=== PATIENT | female | born 1940 | race Caucasian/White ===

== ENCOUNTER → 2016-08-31 | Outpatient (CLI) | payer OTHER, BC ==
[~2016-08-31] MED LIST: CALC600T9 PO; COEN1CAP7 PO; CZR50 PO; FRRS300 PO; PRAV20TA PO; RANI300T2 PO
[2016-08-31 09:40] LABS: URINE APPEARANCE CLEAR (CLEAR); URINE BILIRUBIN NEG (NEG); URINE COLOR DK YELLOW; URINE NITRITE NEG (NEG); URINE SPECIFIC GRAVITY 1.021 (1.000-1.030); UROBILINOGEN NEG (NEG)
[2016-08-31 09:41] LABS: HEMATOCRIT 42.2 % (37-47); MEAN CELL VOLUME 87.6 fL (80-100); MEAN CORPUSCULAR HEMOGLOBIN 28.8 pg (25-34); MEAN CORPUSCULAR HGB CONC 32.9 g/dl (32-36); MEAN PLATELET VOLUME 11.6 fL (7.4-10.4); PLATELET COUNT 86 K/uL (130-400); RED BLOOD COUNT 4.82 M/uL (4.2-5.4); WHITE BLOOD COUNT 6.69 K/uL (4.8-10.8)
[2016-08-31 09:44] LABS: MANUAL MICROSCOPIC REQUIRED? NO; REVIEW REQ? NO
[2016-08-31 10:03] LABS: BASO % 0.4 %; BASO ABS # 0.03 K/uL (0-0.2); COMPLETE YES; EOS % 1.9 %; IG% 0.1 %; LYMPH ABS # 3.08 K/uL (1.2-3.4); MONO % 7.9 %; NEUT % 43.7 %
[2016-08-31 10:09] LABS: ESTIMATED AVERAGE GLUCOSE 111 mg/dl; HA1C FLAG Normal (Normal)
[2016-08-31 10:55] LABS: ALT/SGPT 43 U/L (12-78); AST/SGOT 21 U/L (15-37); BLOOD UREA NITROGEN 16 mg/dl (7-18); CALCIUM 9.2 mg/dl (8.5-10.1); CARBON DIOXIDE 26 mmol/L (21-32); CHLORIDE 108 mmol/L (98-107); CREATININE 0.81 mg/dl (0.60-1.20); GLUCOSE 92 mg/dl (70-99); POTASSIUM 4.2 mmol/L (3.5-5.1); SODIUM 142 mmol/L (136-145)
[2016-08-31 11:09] LABS: CHOLESTEROL 186 mg/dl (0-200); CHOLESTEROL/HDL RATIO 4.5; HDL CHOLESTEROL 41 mg/dl; LDL CHOLESTEROL CALCULATED 111 mg/dl; TRIGLYCERIDES 170 mg/dl (0-150); VERY LOW DENSITY LIPOPROT CALC 34 mg/dl
--- NOTE | 2016-09-07 11:44 | CODING QUERY MEDICAL NECESSITY ---
SUPPORTING DIAGNOSIS NEEDED A supporting diagnosis is required for the test/procedure performed on this patient in order for us to be reimbursed by the patient's insurance. Please provide a supporting diagnosis for the following test/procedure listed below next to the test name along with your signature. *If there is no additional diagnosis for this patient that would support the following test/procedure please document that below next to the test/procedure. Test(s)/Procedure(s) that require a supporting diagnosis: * HEMOGLOBIN A1C DIAGNOSIS: Provider Signature: Date: Thank you Judith Rachel Sensitive Object Information Management Once completed, please kindly fax back to [phone] For questions please call [phone]
== END | disposition home or self-care (01) ==
LOC: C.LAB1850 07:37
PROVIDERS: ATTEND Internal Medicine
DX: E78.00 Pure hypercholesterolemia, unspecified (principal); Z13.1 Encounter for screening for diabetes mellitus

== ENCOUNTER → 2017-05-10 | Outpatient (CLI) | payer OTHER, BC | END | disposition home or self-care (01) | LOC: C.RDSM 18:25 | PROVIDERS: ATTEND Physical Medicine & Rehabilitation Sports Medicine | DX: M25.571 Pain in right ankle and joints of right foot (principal) ==

== ENCOUNTER → 2017-05-26 | Outpatient (CLI) | payer OTHER, BC ==
[2017-05-26 14:29] LABS: HEMOGLOBIN 14.2 g/dL (12.0-16.0); MEAN CORPUSCULAR HEMOGLOBIN 30.1 pg (25-34); MEAN CORPUSCULAR HGB CONC 34.6 g/dl (32-36); PLATELET COUNT 85 K/uL (130-400); RED CELL DISTRIBUTION WIDTH CV 13.8 % (11.5-14.5); RED CELL DISTRIBUTION WIDTH SD 43.8 fL (36.4-46.3); WHITE BLOOD COUNT 6.21 K/uL (4.8-10.8)
[2017-05-26 14:56] LABS: BASO % 0.6 %; BASO ABS # 0.04 K/uL (0-0.2); EOS % 1.6 %; IG# 0.01 K/uL (0.00-0.02); LYMPH % 46.9 %; LYMPH ABS # 2.91 K/uL (1.2-3.4); MONO ABS # 0.56 K/uL (0.11-0.59); NEUT % 41.7 %; NEUT ABS # 2.59 K/uL (1.4-6.5)
[2017-05-26 16:34] LABS: ALT/SGPT 61 U/L (12-78); AST/SGOT 29 U/L (15-37); BLOOD UREA NITROGEN 17 mg/dl (7-18); CALCIUM 9.2 mg/dl (8.5-10.1); CARBON DIOXIDE 25 mmol/L (21-32); CREATININE 0.92 mg/dl (0.60-1.20); GLUCOSE 98 mg/dl (70-99); SODIUM 138 mmol/L (136-145)
[2017-05-26 16:44] LABS: CHOLESTEROL 175 mg/dl (0-200); LDL CHOLESTEROL CALCULATED 99 mg/dl
[2017-05-27 07:41] LABS: HEMOGLOBIN A1C 5.3 % (4.5-5.6)
== END | disposition home or self-care (01) ==
LOC: C.LABBC 11:04
PROVIDERS: ATTEND Internal Medicine
DX: M25.579 Pain in unspecified ankle and joints of unspecified foot (principal)

== ENCOUNTER 2017-10-08 09:39 | Emergency (ER) | payer OTHER, BC ==
[~2017-10-08] VITALS: Ht 157.5 cm; Wt 79.0 kg
[2017-10-08 09:43] VITALS: TEMP 36.8; Ht 157.5 cm; Wt 79.0 kg
--- NOTE | 2017-10-08 09:58 | EMERGENCY ROOM VISIT NOTE ---
History Report prepared by Adolfo: Derek Owens Under the Supervision of: Dr. Alfredo Calderon M.D. First contact with patient: 09:48 Chief Complaint: FALL Stated Complaint: FELL IN POOL, HURT LEG History of Present Illness The patient is a 77 year old female who presents to the Emergency Room with complaints of constant pain in the right lower leg that began yesterday afternoon at 1600, 18 hours ago. The patient states that she was trying to get some leaves out of the pool when she lost her balance and fell into the pool. She denies any dizziness or syncope that caused the fall. She denies hitting her head on the fall. She notes that the pain is a throbbing sensation in the leg and is moderate in nature. She can walk on the right leg, but that does worsen the pain. She denies any pain in the knee. The patient also denies chest pain or shortness of breath. She is unsure if her tetanus is up to date. Patient requesting US of the leg for rule-out DVT. Source of History: patient Onset: 18 hours ago Position: leg (right) Quality: other (pain from fall, "stubbing finger" pain, throbbing) Timing: constant Associated Symptoms: No LOC, No headache Review of Systems See HPI for pertinent positives and negatives. A total of ten systems were reviewed and were otherwise negative. Past Medical & Surgical Medical Problems: (1) Diverticulitis (2) History of diverticulitis Family History Patient reports no known family medical history. Social History Smoking Status: Never Smoker Alcohol Use: none Drug Use: none Marital Status: Housing Status: lives with family Occupation Status: retired Current/Historical Medications Scheduled Calcium Carbonate-Vitamin D (Calcium + D), 1 TAB PO QAM Coenzyme Q10 (Ubidecarenone) (Coq10), 1 CAP PO QPM Pravastatin (Pravachol ), 20 MG PO QPM Ranitidine (Zantac), 300 MG PO BID Miscellaneous Medications Losartan Potassium (Losartan Potassium) Allergies Coded Allergies: Penicillins (Verified Allergy, Unknown, rash, 10/08/17) Sulfa Antibiotics (Unverified Allergy, Unknown, NAUSEA, 10/08/17) Thiopental (Verified Allergy, Unknown, NAUSEA/VEIN HARDENING, 10/08/17) Codeine (Verified Adverse Reaction, Mild, dizzy, 10/08/17) Azithromycin (Verified Adverse Reaction, Unknown, GI UPSET, 10/08/17) Metronidazole (Verified Adverse Reaction, Unknown, GI UPSET, 10/08/17) Physical Exam Vital Signs Date Time Temp Pulse Resp B/P (MAP) Pulse Ox O2 Delivery O2 Flow Rate FiO2 10/08/17 11:42 60 20 151/94 99 Room Air 10/08/17 09:43 36.8 69 18 131/61 98 Room Air Physical Exam Physical Exam GENERAL: She is oriented to person, place, and time. She appears well- developed and well-nourished. She does not appear distressed. HENT: Exam performed. Head: Normocephalic and atraumatic. Right Ear: External ear normal. No mastoid tenderness. Left Ear: External ear normal. No mastoid tenderness. Mouth/Throat: The oropharynx is clear and moist. No trismus in the jaw. No dental abscesses or uvula swelling. No oropharyngeal exudate or tonsillar abscesses. EYES: Conjunctivae and EOM are normal. Pupils are equal, round, and reactive to light. Right eye exhibits no discharge. Left eye exhibits no discharge. No scleral icterus. NECK: Normal range of motion. Neck supple. No JVD present. No spinous process tenderness present. No carotid bruit present. No rigidity. No tracheal deviation and normal range of motion present. No Brudzinski's sign and no Kernig 's sign noted. CV: Normal rate, regular rhythm, normal heart sounds and intact distal pulses. There is no peripheral edema. Palpable radial pulses bue. PULM/CHEST: Effort normal and breath sounds normal. No respiratory distress. No stridor. She has no wheezes. She has no rales. Chest Wall: She exhibits no tenderness. ABD: The abdomen is soft. Bowel sounds are normal. She has no distension. No mass is present. There is no tenderness. There is no rebound, no guarding, no Ashby's sign and no tenderness at McBurney's point. Rovsig negative MUSC/SKEL: Normal range of motion. There is no peripheral edema, tenderness or deformity. Pelvis stable. Bilateral no pain on palpation of the pelvis. lockman, posterior drawer, valgus/varus stress negative LYMPH: No cervical adenopathy. NEURO: She is alert and oriented to person, place, and time. She has normal strength. No cranial nerve deficit or sensory deficit. Coordination and gait normal. GCS eye subscore is 4. GCS verbal subscore is 5. GCS motor subscore is 6. Cerebellar tests wnl. SKIN: Skin is warm and dry. She is not diaphoretic. There is are abrasions over the right knee. PSYCH: She has a normal mood and affect. Behavior is normal. Judgment and thought content normal. Medical Decision & Procedures ER Provider Diagnostic Interpretation: Radiology results as stated below per my review and radiologist interpretation: R ANKLE MIN 3 VIEWS ROUTINE CLINICAL HISTORY: Fall. COMPARISON: Right ankle radiographs November 10, 2015. FINDINGS: Alignment of the right ankle is anatomic. Talar dome is intact. No acute fracture is identified. Moderate posterior and plantar calcaneal spurring is noted. Several small calcific/ossific densities adjacent to the medial malleolus are unchanged. IMPRESSION: No acute fracture or dislocation within the right ankle. Electronically signed by: Keegan Santiago M.D. 10/08/2017 11:10 AM Dictated Date/Time: 10/08/2017 11:09 AM R TIBIA/FIBULA 2 VIEWS ROUTINE CLINICAL HISTORY: Fall. COMPARISON: Right ankle radiograph May 10, 2017. FINDINGS: No acute fracture of the right tibia or fibula is identified. Alignment of the right knee and ankle is anatomic. IMPRESSION: No acute fracture of the right tibia or fibula. Electronically signed by: Keegan Santiago M.D. 10/08/2017 11:08 AM Dictated Date/Time: 10/08/2017 11:07 AM R KNEE 4 OR MORE VIEWS CLINICAL HISTORY: Right knee pain following fall. COMPARISON: None. FINDINGS: Alignment of the right knee is anatomic. There is chondrocalcinosis within the menisci. No acute fracture is identified. There is marked narrowing of the medial patellofemoral compartment. Possible small right knee joint effusion is noted. IMPRESSION: 1. No acute fracture. 2. Possible small right knee joint effusion. 3. Chondrocalcinosis within the menisci and patellofemoral component joint space narrowing. 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 Electronically signed by: Keegan Santiago M.D. 10/08/2017 11:07 AM Dictated Date/Time: 10/08/2017 11:05 AM RIGHT LOWER EXTREMITY VENOUS DOPPLER CLINICAL HISTORY: Right leg pain. Fall. COMPARISON STUDY: No previous studies for comparison. TECHNIQUE: Sonography of the deep venous system of the right lower extremity was performed. Compression and augmentation were evaluated. FINDINGS: The right common femoral, superficial femoral and popliteal veins were compressible. Augmentation was normal. Flow was shown within the deep calf vessels. IMPRESSION: No evidence of deep venous thrombus within the right lower extremity. Electronically signed by: Keegan Santiago M.D. 10/08/2017 11:26 AM Dictated Date/Time: 10/08/2017 11:25 AM PELVIS 1 OR 2 VIEW ROUTINE CLINICAL HISTORY: Fall. Right leg pain. COMPARISON STUDY: CT of the abdomen and pelvis December 17, 2015. FINDINGS: Bowel anastomosis project over the pelvis. Sacroiliac joints and symphysis pubis are intact. There is no acute fracture within the proximal femurs. Subtle cortical irregularity of the right inferior pubic ramus is noted. 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 IMPRESSION: 1. Mild cortical irregularity of the right inferior pubic ramus. Although likely chronic, a nondisplaced fracture could appear similar. 2. No acute fracture of the proximal femurs. Electronically signed by: Keegan Santiago M.D. 10/08/2017 11:04 AM Dictated Date/Time: 10/08/2017 11:01 AM ED Course 0949: The patient was evaluated in room A10. A complete history and physical exam was performed. Patient declines tetanus shot. 1136: vital sings are stable. Imaging is within normal limits with the exception of a pelvis x-ray which shows a cortical irregularity of the right inferior pubic ramus. The radiologist states that this is most likely chronic, however a misplaced fracture will appear the same way. Patient states that she has absolutely no pain in her hips. She has no pain in her hips with walking. She declines CT to rule out fracture. She will follow up with her PCP. DISCHARGE - Plan of care discussed with patient and questions answered. The patient was given both verbal and printed discharge instructions. The patient verbalized understanding and ability to comply. The patient is to seek outpatient follow up as noted in the discharge instructions. The patient verbalized understanding and ability to comply. The patient is discharged in stable condition. The patient was instructed to return for worsening symptoms. Medical Decision vital sings are stable. Imaging is within normal limits with the exception of a pelvis x-ray which shows a cortical irregularity of the right inferior pubic ramus. The radiologist states that this is most likely chronic, however a misplaced fracture will appear the same way. Patient states that she has absolutely no pain in her hips. She has no pain in her hips with walking. She declines CT to rule out fracture. She will follow up with her PCP. DISCHARGE - Plan of care discussed with patient and questions answered. The patient was given both verbal and printed discharge instructions. The patient verbalized understanding and ability to comply. The patient is to seek outpatient follow up as noted in the discharge instructions. The patient verbalized understanding and ability to comply. The patient is discharged in stable condition. The patient was instructed to return for worsening symptoms. Medication Reconcilliation Current Medication List: was personally reviewed by me Blood Pressure Screening Patient's blood pressure: Elevated blood pressure Blood pressure disposition: Elevated BP felt to be situational Impression Primary Impression: Fall Additional Impression: Abrasion Scribe Attestation The scribe's documentation has been prepared under my direction and personally reviewed by me in its entirety. I confirm that the note above accurately reflects all work, treatment, procedures, and medical decision making performed by me. The chart was completed utilizing [employer] Speech voice recognition software. Grammatical errors, random word insertions, pronoun errors, and incomplete sentences are an occasional consequence of this system due to software limitations, ambient noise, and hardware issues. Any formal questions or concerns about the content, text, or information contained within the body of this dictation should be directly addressed to the physician for clarification. Departure Information Dispostion Home / Self-Care Referrals Reed Lowe M.D. (PCP) Forms HOME CARE DOCUMENTATION FORM, IMPORTANT VISIT INFORMATION Patient Instructions My [facility] Additional Instructions Follow-up with your PCP in 1-7 days for tetanus follow-up as well as follow-up for pain. Ambulate and continue your normal activities as tolerated. Return to the emergency department if you develop increased pain in her hips. Problem Qualifiers Primary Impression: Fall Encounter type: initial encounter Qualified Codes: W19.XXXA - Unspecified fall, initial encounter
[2017-10-08] MEDS ORDERED: CZR50 (10:16)
--- NOTE | 2017-10-08 11:06 | DIAGNOSTIC IMAGING REPORT ---
PELVIS 1 OR 2 VIEW ROUTINE CLINICAL HISTORY: Fall. Right leg pain. COMPARISON STUDY: CT of the abdomen and pelvis December 17, 2015. FINDINGS: Bowel anastomosis project over the pelvis. Sacroiliac joints and symphysis pubis are intact. There is no acute fracture within the proximal femurs. Subtle cortical irregularity of the right inferior pubic ramus is noted. 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 IMPRESSION: 1. Mild cortical irregularity of the right inferior pubic ramus. Although likely chronic, a nondisplaced fracture could appear similar. 2. No acute fracture of the proximal femurs. Electronically signed by: Keegan Santiago M.D. 10/08/2017 11:04 AM Dictated Date/Time: 10/08/2017 11:01 AM
--- NOTE | 2017-10-08 11:08 | DIAGNOSTIC IMAGING REPORT ---
R KNEE 4 OR MORE VIEWS CLINICAL HISTORY: Right knee pain following fall. COMPARISON: None. FINDINGS: Alignment of the right knee is anatomic. There is chondrocalcinosis within the menisci. No acute fracture is identified. There is marked narrowing of the medial patellofemoral compartment. Possible small right knee joint effusion is noted. IMPRESSION: 1. No acute fracture. 2. Possible small right knee joint effusion. 3. Chondrocalcinosis within the menisci and patellofemoral component joint space narrowing. 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 Electronically signed by: Keegan Santiago M.D. 10/08/2017 11:07 AM Dictated Date/Time: 10/08/2017 11:05 AM
--- NOTE | 2017-10-08 11:09 | DIAGNOSTIC IMAGING REPORT ---
R TIBIA/FIBULA 2 VIEWS ROUTINE CLINICAL HISTORY: Fall. COMPARISON: Right ankle radiograph May 10, 2017. FINDINGS: No acute fracture of the right tibia or fibula is identified. Alignment of the right knee and ankle is anatomic. IMPRESSION: No acute fracture of the right tibia or fibula. Electronically signed by: Keegan Santiago M.D. 10/08/2017 11:08 AM Dictated Date/Time: 10/08/2017 11:07 AM
--- NOTE | 2017-10-08 11:11 | DIAGNOSTIC IMAGING REPORT ---
R ANKLE MIN 3 VIEWS ROUTINE CLINICAL HISTORY: Fall. COMPARISON: Right ankle radiographs November 10, 2015. FINDINGS: Alignment of the right ankle is anatomic. Talar dome is intact. No acute fracture is identified. Moderate posterior and plantar calcaneal spurring is noted. Several small calcific/ossific densities adjacent to the medial malleolus are unchanged. IMPRESSION: No acute fracture or dislocation within the right ankle. Electronically signed by: Keegan Santiago M.D. 10/08/2017 11:10 AM Dictated Date/Time: 10/08/2017 11:09 AM
--- NOTE | 2017-10-08 11:27 | DIAGNOSTIC IMAGING REPORT ---
RIGHT LOWER EXTREMITY VENOUS DOPPLER CLINICAL HISTORY: Right leg pain. Fall. COMPARISON STUDY: No previous studies for comparison. TECHNIQUE: Sonography of the deep venous system of the right lower extremity was performed. Compression and augmentation were evaluated. FINDINGS: The right common femoral, superficial femoral and popliteal veins were compressible. Augmentation was normal. Flow was shown within the deep calf vessels. IMPRESSION: No evidence of deep venous thrombus within the right lower extremity. Electronically signed by: Keegan Santiago M.D. 10/08/2017 11:26 AM Dictated Date/Time: 10/08/2017 11:25 AM
[2017-10-08 11:42] VITALS: BP 151/94; PULSE 60; O2SAT 99
== END 2017-10-08 11:50 | disposition home or self-care (01) ==
LOC: C.EDA 09:58
DX: S80.211A Abrasion, right knee, initial encounter (principal); W16.012A Fall into swimming pool striking water surface causing other injury, initial encounter; Z79.899 Other long term (current) drug therapy; Z88.0 Allergy status to penicillin; Z88.1 Allergy status to other antibiotic agents; Z88.2 Allergy status to sulfonamides; Z88.5 Allergy status to narcotic agent; Z88.8 Allergy status to other drugs, medicaments and biological substances